=== PATIENT | male | born 1945 | race Caucasian/White ===

== ENCOUNTER 2016-12-29 23:21 | Observation (INO) | payer MEDICARE ==
[2016-12-30] MEDS ORDERED: NS 0.9% 1000 ML* 1,000 ML IV ONE (00:33)
[2016-12-30 01:11] LABS: Hematocrit 47 % (42-52); Hemoglobin 15.1 g/dl (14.0-18.0); Mean Corpuscular HGB Conc 32 g/dl (31-36); Mean Corpuscular Hemoglobin 28 pg (27-31); Mean Corpuscular Volume 89 fL (80-94); Mean Platelet Volume 7 um3 (7.4-10.4); Red Blood Count 5.31 10^6/ul (4.0-5.4); Red Cell Distribution Width 15 % (10.5-15); White Blood Count 13.3 10^3/ul (3.5-10.8)
[2016-12-30 01:26] LABS: ALT 10 U/L (7-52); Albumin 4.4 g/dL (3.2-5.2); Alkaline Phosphatase 71 U/L (34-104); BUN/Creatinine Ratio 16.1 (8-20); Blood Urea Nitrogen 19 mg/dL (6-24); CO2 Carbon Dioxide 23 mmol/L (22-32); Calcium 9.5 mg/dL (8.6-10.3); Chloride 107 mmol/L (101-111); Creatine Kinase 182 U/L (10-223); EGFR African American 78.3 (>60); EGFR Non-African American 60.9 (>60); Globulin 2.5 g/dL (2-4); Glucose 102 mg/dL (70-100); Magnesium 2.3 mg/dL (1.9-2.7); Sodium 135 mmol/L (133-145); Total Protein 6.9 g/dL (6.4-8.9)
[2016-12-30 01:27] LABS: Alcohol < 10 mg/dL (<10)
[2016-12-30 01:28] LABS: Troponin I 0.01 ng/mL (<0.04)
[2016-12-30] MEDS ORDERED: Iohexol 300* (CONTRAST) 10 ML SDV IV ONE (01:29)
[2016-12-30 01:41] LABS: TSH (Thyroid Stimulating Horm) 0.55 mcIU/mL (0.34-5.60)
[2016-12-30 02:06] LABS: AST 16 U/L (13-39); Anion Gap 5 mmol/L (2-11); Potassium 4.4 mmol/L (3.5-5.0)
[2016-12-30 02:43] LABS: Urine Bilirubin Negative (Negative); Urine Glucose Negative (Negative); Urine Nitrite Negative (Negative)
[2016-12-30 02:55] LABS: Benzodiazepine Urine Screen Presumptive Positive (None Detect)
--- NOTE | 2016-12-30 03:56 | ED ---
Syncope/Near Syncope - HPI Summary HPI Summary: Pt here w/ syncope last night. Reports he was in bed after receiving his night time meds (may have received them a little too close to doses earlier in the day as his home health rn intensive care unit needed to stay on HER schedule). Reports he woke at some point and when he got up, he was disoriented and lost - wandering around in his house where he lives alone - fell 3-4 times, each time smacking his head off of the marble floor. He arrives tonight upset/scared about this experience. He is shaking and his mouth is very dry - he's requesting water. Has injury to skin of face but also reports he's had shingles here and in eye for a couple of weeks - has been receiving antiviral and antibiotic medication for this condition through his PCP. Other than meds possibly making him drowsy, he has no idea why he was so disoriented tonight. - History Of Current Complaint Chief Complaint: EDLacSutureRecheck Time Seen by Provider: 12/30/16 00:04 Hx Obtained From: Patient - Allergies/Home Medications Allergies/Adverse Reactions: Allergies Allergy/AdvReac Type Severity Reaction Status Date / Time No Known Allergies Allergy Verified 12/29/16 23:36 PMH/Surg Hx/FS Hx/Imm Hx Previously Healthy: Yes Endocrine/Hematology History: Denies: Hx Anticoagulant Therapy, Hx Blood Disorders, Hx Diabetes, Hx Thyroid Disease, Hx Unexplained Bleeding, Hx Coagulopothy Cardiovascular History: Denies: Hx Hypertension Respiratory History: Reports: Hx Asthma - Exercise induced Denies: Hx Chronic Obstructive Pulmonary Disease (COPD) GI History: Denies: Hx Ulcer Psychiatric History: Reports: Hx Bipolar Disorder - Surgical History Surgery Procedure, Year, and Place: Left hip replacement - Immunization History Date of Tetanus Vaccine: unknown Infectious Disease History: No Infectious Disease History: Denies: Hx Clostridium Difficile, Hx Hepatitis, Hx Human Immunodeficiency Virus (HIV), Hx of Known/Suspected MRSA, Hx Shingles, Hx Known/Suspected VRE, Hx Known/Suspected VRSA, History Other Infectious Disease, Traveled Outside the [place] in Last 30 Days Comment Only: Hx Tuberculosis - PPD positive - Family History Known Family History: Negative: Cardiac Disease, Hypertension, Diabetes - Social History Lives: Alone Alcohol Use: None Hx Substance Use: No Substance Use Type: Reports: None Hx Tobacco Use: No Smoking Status (MU): Never Smoked Tobacco Review of Systems Positive: Drainage - Lt eye d/y shingles and therapy. Negative: Blurred Vision Cardiovascular: Negative Negative: Chest Pain Respiratory: Negative Negative: Shortness Of Breath Gastrointestinal: Negative Negative: Abdominal Pain, Vomiting, Diarrhea, Nausea Positive: no symptoms reported Musculoskeletal: Other - Rt hip pain from fall - is able to bear weight but painful to lie on this side Positive: Bruising - elbows, lac to face Positive: Headache - facial, Syncope - as in HPI. Negative: Weakness, Paresthesia, Numbness, Slurred Speech Positive: Anxious All Other Systems Reviewed And Are Negative: Yes Physical Exam Triage Information Reviewed: Yes Vital Signs On Initial Exam: Initial Vitals Temp Pulse Resp BP Pulse Ox 100.7 F 68 16 132/53 97 12/29/16 23:29 12/29/16 23:29 12/29/16 23:29 12/29/16 23:29 12/29/16 23:29 Vital Signs Reviewed: Yes Appearance: Positive: Pain Distress - pt initially presents w/ agitation, wandering from room to milieu; shaking/subtle tremulousness; dry mouth; upset about inital care upon arrival but does not give specifics, Thin Skin: Positive: Warm - Lt forehead w/ abrasion, scabbing appears to have been ripped away over erythematous base (area of shingles per pt); Lt palpebrae is w / erythema and edema here - dried blood on other areas of face as well; contustions over B/L elbows (no laxity and NTTP - FROM - does not appear to have fx's/dislocation); Rt lateral distal tibia w/ abrasion and dried blood. Head/Face: Negative: Other - as above Eyes: Positive: EOMI, MAKAYLA, Conjunctiva Inflammed - Lt eye (mild), Discharge - scant ENT: Positive: Hearing grossly normal, TMs normal - no hemotympanum. Negative: Nasal congestion, Nasal drainage, Trismus, Muffled voice Neck: Positive: Supple, Nontender Respiratory/Lung Sounds: Positive: Clear to Auscultation, Breath Sounds Present. Negative: Rales, Rhonchi, Subcutaneous Emphysema, Stridor, Tracheal Deviation, Wheezes, Unable to speak in full sentences, Fatigue Cardiovascular: Positive: Normal, RRR, S1, S2 Abdomen Description: Positive: Nontender, No Organomegaly, Soft Bowel Sounds: Positive: Present Musculoskeletal: Positive: Strength/ROM Intact, Pain @ - Rt hip w/ TTP; no external rotation - moving well while lying in bed - although asked to stay in bed, he is up and ambulating at times - does not appear to have difficulty bearing weight ambulating Neurological: Positive: Normal, Sensory/Motor Intact, Alert, Oriented to Person Place, Time, CN Intact II-III Psychiatric: Positive: Anxious - bur consolable - calm down and perks up/more clear after drinking water and gingerale - [place] Coma Scale Coma Scale Total: 14 Diagnostics - Vital Signs Vital Signs Temp Pulse Resp BP Pulse Ox 12/30/16 01:03 100 12/30/16 00:01 64 17 120/54 96 12/30/16 00:00 64 13 95 12/29/16 23:57 64 16 116/52 95 12/29/16 23:29 100.7 F 68 16 132/53 97 - Laboratory Lab Results: Lab Results 12/30/16 12/30/16 12/30/16 Range/Units 01:00 01:00 01:00 WBC 13.3 H (3.5-10.8) 10^3/ul RBC 5.31 (4.0-5.4) 10^6/ul Hgb 15.1 (14.0-18.0) g/dl Hct 47 (42-52) % MCV 89 (80-94) fL MCH 28 (27-31) pg MCHC 32 (31-36) g/dl RDW 15 (10.5-15) % Plt Count 235 (150-450) 10^3/ul MPV 7 L (7.4-10.4) um3 Neut % (Auto) 79.7 (38-83) % Lymph % (Auto) 12.3 L (25-47) % [place] % (Auto) 5.8 (1-9) % Eos % (Auto) 1.5 (0-6) % Baso % (Auto) 0.7 (0-2) % Absolute Neuts (auto) 10.6 H (1.5-7.7) 10^3/ul Absolute Lymphs (auto) 1.6 (1.0-4.8) 10^3/ul Absolute Monos (auto) 0.8 (0-0.8) 10^3/ul Absolute Eos (auto) 0.2 (0-0.6) 10^3/ul Absolute Basos (auto) 0.1 (0-0.2) 10^3/ul Absolute Nucleated RBC 0.03 10^3/ul Nucleated RBC % 0.2 Sodium 135 (133-145) mmol/L Potassium 4.4 (3.5-5.0) mmol/L Chloride 107 (101-111) mmol/L Carbon Dioxide 23 (22-32) mmol/L Anion Gap 5 (2-11) mmol/L BUN 19 (6-24) mg/dL Creatinine 1.18 H (0.67-1.17) mg/dL Est GFR ( Amer) 78.3 (>60) Est GFR (Non-Af Amer) 60.9 (>60) BUN/Creatinine Ratio 16.1 (8-20) Glucose 102 H (70-100) mg/dL Lactic Acid 0.9 (0.5-2.0) mmol/L Calcium 9.5 (8.6-10.3) mg/dL Magnesium 2.3 (1.9-2.7) mg/dL Total Bilirubin 0.70 (0.2-1.0) mg/dL AST 16 (13-39) U/L ALT 10 (7-52) U/L Alkaline Phosphatase 71 (34-104) U/L Total Creatine Kinase 182 (10-223) U/L Troponin I 0.01 (<0.04) ng/mL Total Protein 6.9 (6.4-8.9) g/dL Albumin 4.4 (3.2-5.2) g/dL Globulin 2.5 (2-4) g/dL Albumin/Globulin Ratio 1.8 (1-3) TSH 0.55 (0.34-5.60) mcIU/mL Urine Color Urine Appearance Urine pH (5-9) Ur Specific [place] (1.010-1.030) Urine Protein (Negative) Urine Ketones (Negative) Urine Blood (Negative) Urine Nitrate (Negative) Urine Bilirubin (Negative) Urine Urobilinogen (Negative) Ur Leukocyte Esterase (Negative) Urine Glucose (Negative) Urine Opiates Screen (None Detect) Ur Barbiturates Screen (None Detect) Ur Phencyclidine Scrn (None Detect) Ur Amphetamines Screen (None Detect) U Benzodiazepines Scrn (None Detect) Urine Cocaine Screen (None Detect) U Cannabinoids Screen (None Detect) Serum Alcohol < 10 (<10) mg/dL 12/30/16 12/30/16 Range/Units 02:30 02:30 WBC (3.5-10.8) 10^3/ul RBC (4.0-5.4) 10^6/ul Hgb (14.0-18.0) g/dl Hct (42-52) % MCV (80-94) fL MCH (27-31) pg MCHC (31-36) g/dl RDW (10.5-15) % Plt Count (150-450) 10^3/ul MPV (7.4-10.4) um3 Neut % (Auto) (38-83) % Lymph % (Auto) (25-47) % [place] % (Auto) (1-9) % Eos % (Auto) (0-6) % Baso % (Auto) (0-2) % Absolute Neuts (auto) (1.5-7.7) 10^3/ul Absolute Lymphs (auto) (1.0-4.8) 10^3/ul Absolute Monos (auto) (0-0.8) 10^3/ul Absolute Eos (auto) (0-0.6) 10^3/ul Absolute Basos (auto) (0-0.2) 10^3/ul Absolute Nucleated RBC 10^3/ul Nucleated RBC % Sodium (133-145) mmol/L Potassium (3.5-5.0) mmol/L Chloride (101-111) mmol/L Carbon Dioxide (22-32) mmol/L Anion Gap (2-11) mmol/L BUN (6-24) mg/dL Creatinine (0.67-1.17) mg/dL Est GFR ( Amer) (>60) Est GFR (Non-Af Amer) (>60) BUN/Creatinine Ratio (8-20) Glucose (70-100) mg/dL Lactic Acid (0.5-2.0) mmol/L Calcium (8.6-10.3) mg/dL Magnesium (1.9-2.7) mg/dL Total Bilirubin (0.2-1.0) mg/dL AST (13-39) U/L ALT (7-52) U/L Alkaline Phosphatase (34-104) U/L Total Creatine Kinase (10-223) U/L Troponin I (<0.04) ng/mL Total Protein (6.4-8.9) g/dL Albumin (3.2-5.2) g/dL Globulin (2-4) g/dL Albumin/Globulin Ratio (1-3) TSH (0.34-5.60) mcIU/mL Urine Color Yellow Urine Appearance Clear Urine pH 5.0 (5-9) Ur Specific [place] 1.044 H (1.010-1.030) Urine Protein Negative (Negative) Urine Ketones Negative (Negative) Urine Blood Negative (Negative) Urine Nitrate Negative (Negative) Urine Bilirubin Negative (Negative) Urine Urobilinogen Negative (Negative) Ur Leukocyte Esterase Negative (Negative) Urine Glucose Negative (Negative) Urine Opiates Screen None detected (None Detect) Ur Barbiturates Screen None detected (None Detect) Ur Phencyclidine Scrn None detected (None Detect) Ur Amphetamines Screen None detected (None Detect) U Benzodiazepines Scrn Presumptive positive H (None Detect) Urine Cocaine Screen None detected (None Detect) U Cannabinoids Screen None detected (None Detect) Serum Alcohol (<10) mg/dL Result Diagrams: 12/30/16 01:00 12/30/16 01:00 Diagnostic Studies Comment: Pt's CT reports reviewed: *brain with. * maxillofacial, chest, ab, pelvis w/o acute findings. NOTE: chest w/ small noncalcified nodules in Rt middle lobe (< 5cm) - f/u recommended. *cervical w/ anterolisthesis of C6 on C7, increased slightly from 2007 - pt denies clincal sx to correlate with danger s/sx of nerve pathology as a result. *brain small infarcts right caudate head and right basal ganglia/internal capsule of indeterminate age - correlate with sx - pt's sx are concerning for CVA and he denies previous h/o CVA. Lab Statement: Any lab studies that have been ordered have been reviewed, and results considered in the medical decision making process. Course/Dx Course Of Treatment: Pt presents w/ waking tonight w/ disorientation and falling /syncopizing w/ head injury 3-4 times. Reports he struck his head against marble each time. Was initially agitated and confused upon arrival. Cognition and attitude improved as he was here, rehydrated, etc. Suspect CT brain findings of ischemia could be acute and have triggered sx. He also reports concussion sx. Facial abrasion cannot be repaired but was cleaned and dressed. Reviewed with Dr. Short and Dr. Peres - pt agrees to admission for further observation and w/u. Stable at time of transition. - Diagnoses Provider Diagnoses: Syncope, Head injury, Concussion, Facial abrasion, Contusion, elbow, Basal ganglia infarction Discharge - Discharge Plan Condition: Improved Disposition: ADMITTED TO [facility]
[2016-12-30] MEDS ORDERED: Acetaminophen TAB* 325 MG PO PRN (04:58)
[2016-12-30] MEDS: traMADol TAB* 50 MG PO PRN ×2 (06:10→12:59)
[2016-12-30] MEDS: NS 0.9% 1000 ML* 1,000 ML IV SCH ×2 (06:10→17:19)
[2016-12-30] MEDS: Omeprazole CAP* 20 MG PO SCH (06:18)
--- NOTE | 2016-12-30 07:53 | HP ---
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 He has someone coming to his home assisting him, but thinks he may have taken his meds too early as he awoke after dark in his home unaware of exactly where in the home he was. In the process of stumbling in the dark he fell 3 times over objects before figuring out where in his home he was. He then came to the ED quite anxious over the events. He recalls falling and does not believe he passed out. He denies focal W /N/T, change in speech/swallow, chest pain, palpitations, light-headedness, or other issues. 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 Halcion 0.125 mg PO BEDTIME 04/26/14 Klonopin 0.5 mg PO BEDTIME 04/26/[address] [place] Carbonate 600 mg PO BEDTIME 04/26/14 Quetiapine Fumarate [Seroquel] 100 mg PO BEDTIME 04/26/14 Temazepam CAP* [Restoril CAP*] 15 mg PO BEDTIME 04/26/14 buPROPion TAB* [Wellbutrin TAB*] 450 mg PO DAILY 04/26/14 Levothyroxine TAB* [Synthroid 75 MCG TAB*] 1 tab 10/04/15 OXcarbazepine TAB(*) [Trileptal TAB(*)] 600 mg BEDTIME 10/04/15 Triamcinolone 0.5% OINT * 1 applic TOPICAL TID #1 tube MDD 3 a day 10/04/15 Allergies No Known Allergies Allergy (Verified 12/29/16 23:36) PSurgHx R cataract extraction appendectomy L KIMBERLY SocHx: denies tobacco, alcohol, and recreational drugs; lives alone, single, no children; 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; 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 FamHx: postitive for cancer & HTN ROS: as above, otherwise reviewed and all were negative vitals: Vital Signs Temp 37.3 C 12/30/16 06:01 Pulse 59 12/30/16 06:01 Resp 18 12/30/16 06:10 BP 138/55 12/30/16 06:01 Pulse Ox 97 12/30/16 06:01 Intake & Output 12/29/16 12/29/16 12/30/16 11:59 23:59 11:59 Weight 72.575 kg 72.575 kg Constitutional: NAD, normally developed, well-nourished white male HEENM: atraumatic; sclera/conjunctiva: injected/clear; blephara: swollen L; hearing: clinically intact; oropharynx: clear, mucosa tacky Neck: soft tissue: sore musculature, no bony pain; thyroid: normal Pulmonary: clear to auscultation bilaterally, good aeration, no accessory muscle use CV: RR/RR, normal S1S2, no carotid bruit, no jugular venous distention, 2+ B DP/ PT, no edema Abdominal: soft, non-distended, non-tender, no rebound/guarding/rigidity, normoactive bowel sounds, no hepatosplenomegaly or masses, no costovertebral angle tenderness Musculoskeletal: general: grossly intact; gait: stable Integumental: L ophthalmic trigeminal branch w/ scabbing herpetic eruption and superimposed abrasion Neurological cranial nerves II: visual chisholm tested & intact III/IV/: symmetric light reflex, EOMI/PERRLA V: intact facial sensation (hypersensitive in shingles distribution) VII: intact facial symmetry VIII: hearing clinically intact IX/X: symmetric palatal motion, no dysarthria XII: midline tongue fasciculation, protrusion, voice articulation motor: R-handed; diffuse fine tremor present throughout LUE: 4+/5 proximally, 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, & 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 RUE: 4+/5 proximally, distally, & 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 LLE: 4+/5 proximally & distally RLE: 4+/5 proximally & distally coordination finger/nose: intact/symmetric heal/liu: intact/decreased ability on L 2nd total hip arthoplasty dysdiadochokinesia: none sensory crude touch: diminished symetrically B feet; otherwise intact pinprick: decreased L lateral ankle; otherwise intact vibration: decreased perception B feet; otherwise intact DTRs biceps: 1+ B triceps: 1+ B brachioradialis: 1+ B patellar: 2+ B Achilles: trace B Psychiatric orientation: AA&O to PPS affect: calm mood: cooperative, pleasant eye contact: good content: reliable responses: timely insight: good Testing: Lab Results 12/30/16 12/30/16 12/30/16 Range/Units 01:00 01:00 01:00 WBC 13.3 H (3.5-10.8) 10^3/ul RBC 5.31 (4.0-5.4) 10^6/ul Hgb 15.1 (14.0-18.0) g/dl Hct 47 (42-52) % MCV 89 (80-94) fL MCH 28 (27-31) pg MCHC 32 (31-36) g/dl RDW 15 (10.5-15) % Plt Count 235 (150-450) 10^3/ul MPV 7 L (7.4-10.4) um3 Neut % (Auto) 79.7 (38-83) % Lymph % (Auto) 12.3 L (25-47) % [place] % (Auto) 5.8 (1-9) % Eos % (Auto) 1.5 (0-6) % Baso % (Auto) 0.7 (0-2) % Absolute Neuts (auto) 10.6 H (1.5-7.7) 10^3/ul Absolute Lymphs (auto) 1.6 (1.0-4.8) 10^3/ul Absolute Monos (auto) 0.8 (0-0.8) 10^3/ul Absolute Eos (auto) 0.2 (0-0.6) 10^3/ul Absolute Basos (auto) 0.1 (0-0.2) 10^3/ul Absolute Nucleated RBC 0.03 10^3/ul Nucleated RBC % 0.2 Sodium 135 (133-145) mmol/L Potassium 4.4 (3.5-5.0) mmol/L Chloride 107 (101-111) mmol/L Carbon Dioxide 23 (22-32) mmol/L Anion Gap 5 (2-11) mmol/L BUN 19 (6-24) mg/dL Creatinine 1.18 H (0.67-1.17) mg/dL Est GFR ( Amer) 78.3 (>60) Est GFR (Non-Af Amer) 60.9 (>60) BUN/Creatinine Ratio 16.1 (8-20) Glucose 102 H (70-100) mg/dL Lactic Acid 0.9 (0.5-2.0) mmol/L Calcium 9.5 (8.6-10.3) mg/dL Magnesium 2.3 (1.9-2.7) mg/dL Total Bilirubin 0.70 (0.2-1.0) mg/dL AST 16 (13-39) U/L ALT 10 (7-52) U/L Alkaline Phosphatase 71 (34-104) U/L Total Creatine Kinase 182 (10-223) U/L Troponin I 0.01 (<0.04) ng/mL Total Protein 6.9 (6.4-8.9) g/dL Albumin 4.4 (3.2-5.2) g/dL Globulin 2.5 (2-4) g/dL Albumin/Globulin Ratio 1.8 (1-3) TSH 0.55 (0.34-5.60) mcIU/mL Urine Color Urine Appearance Urine pH (5-9) Ur Specific [place] (1.010-1.030) Urine Protein (Negative) Urine Ketones (Negative) Urine Blood (Negative) Urine Nitrate (Negative) Urine Bilirubin (Negative) Urine Urobilinogen (Negative) Ur Leukocyte Esterase (Negative) Urine Glucose (Negative) Urine Opiates Screen (None Detect) Ur Barbiturates Screen (None Detect) Ur Phencyclidine Scrn (None Detect) Ur Amphetamines Screen (None Detect) U Benzodiazepines Scrn (None Detect) Urine Cocaine Screen (None Detect) U Cannabinoids Screen (None Detect) Serum Alcohol < 10 (<10) mg/dL 12/30/16 12/30/16 Range/Units 02:30 02:30 WBC (3.5-10.8) 10^3/ul RBC (4.0-5.4) 10^6/ul Hgb (14.0-18.0) g/dl Hct (42-52) % MCV (80-94) fL MCH (27-31) pg MCHC (31-36) g/dl RDW (10.5-15) % Plt Count (150-450) 10^3/ul MPV (7.4-10.4) um3 Neut % (Auto) (38-83) % Lymph % (Auto) (25-47) % [place] % (Auto) (1-9) % Eos % (Auto) (0-6) % Baso % (Auto) (0-2) % Absolute Neuts (auto) (1.5-7.7) 10^3/ul Absolute Lymphs (auto) (1.0-4.8) 10^3/ul Absolute Monos (auto) (0-0.8) 10^3/ul Absolute Eos (auto) (0-0.6) 10^3/ul Absolute Basos (auto) (0-0.2) 10^3/ul Absolute Nucleated RBC 10^3/ul Nucleated RBC % Sodium (133-145) mmol/L Potassium (3.5-5.0) mmol/L Chloride (101-111) mmol/L Carbon Dioxide (22-32) mmol/L Anion Gap (2-11) mmol/L BUN (6-24) mg/dL Creatinine (0.67-1.17) mg/dL Est GFR ( Amer) (>60) Est GFR (Non-Af Amer) (>60) BUN/Creatinine Ratio (8-20) Glucose (70-100) mg/dL Lactic Acid (0.5-2.0) mmol/L Calcium (8.6-10.3) mg/dL Magnesium (1.9-2.7) mg/dL Total Bilirubin (0.2-1.0) mg/dL AST (13-39) U/L ALT (7-52) U/L Alkaline Phosphatase (34-104) U/L Total Creatine Kinase (10-223) U/L Troponin I (<0.04) ng/mL Total Protein (6.4-8.9) g/dL Albumin (3.2-5.2) g/dL Globulin (2-4) g/dL Albumin/Globulin Ratio (1-3) TSH (0.34-5.60) mcIU/mL Urine Color Yellow Urine Appearance Clear Urine pH 5.0 (5-9) Ur Specific [place] 1.044 H (1.010-1.030) Urine Protein Negative (Negative) Urine Ketones Negative (Negative) Urine Blood Negative (Negative) Urine Nitrate Negative (Negative) Urine Bilirubin Negative (Negative) Urine Urobilinogen Negative (Negative) Ur Leukocyte Esterase Negative (Negative) Urine Glucose Negative (Negative) Urine Opiates Screen None detected (None Detect) Ur Barbiturates Screen None detected (None Detect) Ur Phencyclidine Scrn None detected (None Detect) Ur Amphetamines Screen None detected (None Detect) U Benzodiazepines Scrn Presumptive positive H (None Detect) Urine Cocaine Screen None detected (None Detect) U Cannabinoids Screen None detected (None Detect) Serum Alcohol (<10) mg/dL ECG, personally reviewed: sinus 1st degree AV block rate 61, no ischemia CT brain WO, personally reviewed: FINDINGS: Involutional changes. No hemorrhage. No mass. Small infarcts right caudate head and right basal ganglia/ internal capsule of indeterminate age. Correlate with symptoms. Osseous structures are intact. CT maxillofacial WO: FINDINGS: Negative for orbital or facial fracture. The globes and orbits are intact. CT C-spine WO: FINDINGS: Negative for acute cervical fracture of C1-6. C7 is incompletely included on the scan. If there is any suspicion of a C7 fracture, scan should be repeated to include this area. Again note is made of anterolisthesis of C6 on C7. Compared to 2008, the anterolisthesis has increased slightly. There is now near fusion of the C6-[address] chest/abd/pel W: FINDINGS: Chest: Negative for thoracic/pulmonary injury. No pneumothorax or pneumomediastinum. No pulmonary infiltrates/contusions. There is a trace right pleural effusion which measures transudate and not blood. Note made of small non-calcified nodules in the right middle lobe ( less than 5cm). Follow up recommended according to established criteria. Abdomen/pelvis: Negative for abdominal pelvic visceral injury. Liver, gallbladder, spleen, pancreas, adrenal glands, kidneys, urinary tract, and urinary bladder are all intact. Note made of multiple renal cysts. No acute abnormality of bowel. No pneumoperitoneum or ascites. Enlarged prostate. 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
--- NOTE | 2016-12-30 08:04 | RAD ---
indication: Facial lacerations and confusion after fall. There is a laceration overlying the left forEhead. COMPARISON: CT of the cervical spine April 20, [address] scan of the brain, maxillofacial bones and c-spine was performed without intravenous contrast enhancement. Contiguous axial sections were obtained from the lung apices through the vertex of the skull. BRAIN: The ventricles, cisterns and sulci symmetrical involutional changes. There is mild periventricular and subcortical white matter hypoattenuation most consistent with chronic microvascular disease. At the anterior limb of the right internal capsule as well as the right caudate head nucleus there is a more focal hypoattenuating area that could represent an age indeterminant lacunar infarction. Otherwise the teague-white differentiation is adequately maintained. There is no evidence for intracranial hemorrhage. The calvarium is intact without radiographically apparent fracture. The mastoid air cells are appropriately aerated. FACIAL BONES: Bones: There is no displaced fracture or dislocation. The orbital rim is intact. The zygomatic arch is intact. The pterygoid plates are intact Orbits: The globes are round. The optic nerves are symmetric. The extraocular musculature is normal. There is no post septal or intraconal inflammatory change. There is no retrobulbar hematoma. Paranasal Sinuses: The paranasal sinuses are clear. C-SPINE: The cervical spine is only imaged up to the intervertebral disc of C7 and T1 with the anterior inferior margin of the C7 vertebral body cut off of the field of view. Degenerative changes of the cervical spine include loss of intervertebral disc height and marginal osteophyte formation. Most severe degenerative changes are seen at C5-C7. There is grade 1 anterolisthesis of C6 over C7 similar in appearance to the 2007 CT examination. The vertebral bodies and facet joints are otherwise appropriately aligned. On the coronal plane images there is uncovertebral hypertrophy most severely affecting the lower cervical spine. There is no prevertebral soft tissue swelling. There is no hyperdense material in the cervical canal to indicate hemorrhage. The visualized musculature and soft tissues are normal. There is no gross lymphadenopathy visualized. The visualized portion of the lung apices are clear. IMPRESSION: 1. No calvarial fracture or acute intracranial hemorrhage. CT findings are most consistent with chronic microvascular disease but there could be an age indeterminant lacunar infarction at the right internal capsule and caudate head nucleus. Please correlate to focal neurologic deficits. 2. No facial bone fractures. 3. Multilevel degenerative change of the cervical spine not substantially changed since the April 20, 2007 CT of the cervical spine.
--- NOTE | 2016-12-30 08:10 | RAD ---
INDICATION: Multiple falls, right hip and abdominal pain. COMPARISON: Comparison is made with a prior chest x-ray study from May 30, 2003. TECHNIQUE: A CT scan of the chest, abdomen and pelvis was performed with intravenous and without oral contrast following intravenous injection of 97 ml of Omnipaque 300 nonionic contrast. Contiguous axial sections were obtained from the lung apices through the symphysis pubis. Images were reconstructed in the coronal and sagittal planes. FINDINGS: There is mild dependent bilateral lower lobe subsegmental atelectasis. There are a couple 2-3 mm noncalcified nodules present in the right upper and right middle lobes seen on images #28 and 30 on the axial data set. There is a trace right pleural effusion. No significant enlarged mediastinal or hilar lymph nodes are seen. The heart is within normal limits in size. No pericardial effusion is present. The thoracic aorta is normal in caliber. The liver is normal in size without significant focal abnormality. No calcified gallstones are seen. The spleen is mildly enlarged. The pancreas appears to be within normal limits. The kidneys and adrenal glands are normal in size. There is no evidence for hydronephrosis. There are multiple bilateral renal cysts measuring up to 4.9 cm on the right side and 6.3 cm on the left side. The aorta is normal in caliber and there is moderate calcific plaque present. No significant enlarged retroperitoneal lymph nodes are seen. There is a small hiatal hernia. The stomach, small and large bowel appear nondistended. There is mild sigmoid diverticulosis. There is no evidence for diverticulitis or colitis. No free intraperitoneal air or fluid is seen. No fracture is seen. The patient is status post total left hip replacement surgery. There are few scattered sclerotic nonspecific foci present in the vertebra. There is anterior subluxation of L5 relative S1 of approximately 5 mm consistent with grade I anterior spondylolisthesis. There is bilateral spondylolysis at the L5 level which appears chronic. IMPRESSION: 1. TRACE RIGHT PLEURAL EFFUSION 2. SMALL NODULAR DENSITIES IN THE RIGHT UPPER AND MIDDLE LOBES. RECOMMEND A FOLLOW-UP CT OF THE CHEST IN 6 MONTHS TIME TO DEMONSTRATE STABILITY. 3. MILD SPLENOMEGALY. 4. GRADE I ANTERIOR SPONDYLOLISTHESIS AT THE L5-S1 LEVEL AND BILATERAL SPONDYLOLYSIS AT THE L5 LEVEL.
[2016-12-30] MEDS: oxyCODONE TAB* 5 MG TAB PO PRN ×3 (08:59→22:35)
[2016-12-30] MEDS: Docusate CAP* 100 MG PO SCH ×2 (08:59→22:29)
[2016-12-30 10:14] LABS: Hematocrit 41 % (42-52); Hemoglobin 13.5 g/dl (14.0-18.0); Mean Corpuscular HGB Conc 33 g/dl (31-36); Mean Corpuscular Hemoglobin 29 pg (27-31); Mean Corpuscular Volume 88 fL (80-94); Mean Platelet Volume 7 um3 (7.4-10.4); Red Blood Count 4.62 10^6/ul (4.0-5.4); Red Cell Distribution Width 14 % (10.5-15); White Blood Count 10.3 10^3/ul (3.5-10.8)
--- NOTE | 2016-12-30 10:25 | ECHO ---
Patient: ROD MONTIEL [facility] Rec#: [id number] : 1945 Date: 12/30/2016 Age: 71y Height: 175.26 cm / 69.0 in Weight: 72.57 kg / 159.9 lbs Sex: M BSA: 1.88 Room#: 452 Admit Date#: 12/30/2016 Type: Inpatient Referring: Don Crain MD Reading: Ventura Augustine MD Medical Records Auditor: Luz Germain,DENISECS,RDMS CC: Moncho Delaney MD Transthoracic Echocardiogram Indication: TIA/CVA, Syncope BP: 138/55 HR: 64 Rhythm: NSR Findings History: Asthma, shingles Technical Comments: The study quality is fair. Left Ventricle: The left ventricular chamber size is normal. Mild concentric left ventricular hypertrophy is observed. There is diffuse global hypokinesis of the left ventricle. Left ventricular systolic function is at the lower limits of normal. The estimated ejection fraction is 50-55%. Abnormal left ventricular diastolic function is observed. Left Atrium: The left atrium is mild to moderately dilated. Right Ventricle: The right ventricular chamber size and systolic function are within normal limits. Right Atrium: The right atrial cavity size is normal. Aortic Valve: The aortic valve is trileaflet. The aortic valve leaflets are mildly thickened. There is moderate to severe aortic regurgitation. Eccentric jet pushing onto the anterior leaflet of the mitral valve There is no evidence of aortic stenosis. Mitral Valve: The mitral valve leaflets appear normal. Mitral valve leaflet mobility is mildly restricted. The anterior MV leaflet mobility is restricted by AOV regurgitation. There is no evidence of mitral regurgitation. There is no evidence of mitral stenosis. Tricuspid Valve: The tricuspid valve leaflets are normal. There is trace tricuspid regurgitation. Unable to estimate the right ventricular systolic pressure. Pulmonic Valve: There is no evidence of pulmonic valve thickening. There is a trace pulmonic regurgitation. Pericardium: There is no significant pericardial effusion. Aorta: There is mild dilatation of the ascending aorta. There is no dilatation of the aortic arch. There is mild dilatation of the aortic root. Pulmonary Artery: The main pulmonary artery is not well visualized. Venous: The inferior vena cava appears normal in size. There is a greater than 50% respiratory change in the inferior vena cava dimension. Summary: There was not any prior study for comparison. Conclusions There is diffuse global hypokinesis of the left ventricle. Left ventricular systolic function is at the lower limits of normal. The estimated ejection fraction is 50-55%. The right ventricular chamber size and systolic function are within normal limits. The aortic valve leaflets are mildly thickened. There is moderate to severe aortic regurgitation. Eccentric jet pushing onto the anterior leaflet of the mitral valve Mitral valve leaflet mobility is mildly restricted. The anterior MV leaflet mobility is restricted by AOV regurgitation. There is no evidence of mitral regurgitation. There is trace tricuspid regurgitation. Unable to estimate the right ventricular systolic pressure. There is no significant pericardial effusion. Transesophogeal echo may be of benefit to evaluate aortic valvel There was not any prior study for comparison. Measurements Name Value Normal Range RVIDd (AP) 2D 3 cm (0.9 - 2.6) RVDdMajor (2D) 3.2 cm (2.2 - 4.4) RAd ISD 4CH 3.9 cm (3.4 - 4.9) RA (A4C)W 3.3 cm (2.9 - 4.6) IVSd (2D) 1.2 cm (0.6 - 1) LVPWd (2D) 1.2 cm (0.6 - 1) LVIDd (2D) 4.8 cm (3.6 - 5.4) LVIDs (2D) 3.6 cm - LV FS (2D) 24 % (25 - 45) Aortic Annulus 2.1 cm (1.4 - 2.6) Ao root diameter (2D) 3.6 cm (2.1 - 3.5) Ascending Ao 3.7 cm (2.1 - 3.4) Aortic arch 3.3 cm (1.8 - 3.4) LA dimension (AP) 2D 4.4 cm (2.3 - 3.8) LAd ISD 4CH 4.9 cm (2.9 - 5.3) LA ISD 4CH W 4.9 cm (2.5 - 4.5) Name Value Normal Range LA ESV SP 4CH (A/L) 75.36 ml - LA ESV SP 2CH (A/L) 72.5 ml - LA ESV BP (A/L) 78.06 ml - LA ESV BP (A/L) index 41.5 ml/m2 - LA ESV SP 4CH (MOD) 69.78 ml - LA ESV SP 2CH (MOD) 65.28 ml - Name Value Normal Range MV E-wave Vmax 0.6 m/sec - MV deceleration time 364 msec - MV A-wave Vmax 0.6 m/sec - MV E:A ratio 1 ratio - LV septal e' Vmax 0.04 m/sec - LV lateral e' Vmax 0.05 m/sec - LV E:e' septal ratio 15 ratio - LV E:e' lateral ratio 12 ratio - Name Value Normal Range AV Vmax 2.1 m/sec - AV VTI 39 cm - AV peak gradient 17 mmHg - AV mean gradient 8 mmHg - LVOT diameter 2.2 cm - LVOT Vmax 1 m/sec - LVOT VTI 21 cm - LVOT peak gradient 4 mmHg - LVOT mean gradient 2.1 mmHg - MIKE (continuity Vmax) 1.8 cm2 - AR PHT 527.02 msec - AR peak gradient 60.24 mmHg - JOESPH Vmax 1.1 m/sec - Name Value Normal Range RAP 8 mmHg - IVC diameter 1.8 cm - Name Value Normal Range PV Vmax 0.6 m/sec - PV peak gradient 1.4 mmHg -
--- NOTE | 2016-12-30 11:57 | RAD ---
HISTORY: Stroke COMPARISONS: None TECHNIQUE: The following sequences were obtained of the head: Sagittal T1-weighted images, axial T2-weighted images, axial FLAIR images, axial susceptibility weighted images, axial T1-weighted images. Additionally, axial diffusion-weighted images were obtained with calculated apparent diffusion coefficients. FINDINGS: Evaluation is somewhat limited by magnetic susceptibility artifact which limits evaluation of the inferior frontal lobes on the diffusion-weighted imaging. HEMORRHAGE/INFARCT: There is no hemorrhage or acute infarct. MASSES/SHIFT: There is no mass or shift. EXTRA-AXIAL SPACES/MENINGES: There are no extra-axial fluid collections. SULCI AND VENTRICLES: The sulci and ventricles are normal in size and position for the patient's stated age. CEREBRUM: There are no focal parenchymal abnormalities. BRAINSTEM: There are no focal parenchymal abnormalities. CEREBELLUM: There are no focal parenchymal abnormalities. The cerebellar tonsils are normal in size and position. SELLA: The sella is normal. PINEAL: The pineal region is clear. CP ANGLE/TEMPORAL BONES: The labyrinthine structures are grossly normal. VESSELS: Normal flow-voids are noted within the visualized vertebral vasculature. DIFFUSION ABNORMALITIES: There are no diffusion abnormalities. PARANASAL SINUSES/MASTOIDS: The paranasal sinuses are clear. ORBITS: The orbits are unremarkable. BONES AND SOFT TISSUE: No bone or soft tissue abnormalities are noted. OTHER: None IMPRESSION: UNREMARKABLE MRI OF THE BRAIN. WITHIN THE LIMITATIONS OF THE STUDY, THERE IS NO RESTRICTED DIFFUSION TO SUGGEST ACUTE INFARCT
[2016-12-30] MEDS: PTO:Timolol 0.5% OPTH.SOL* BTL LEFT EYE SCH ×2 (12:58→22:40)
[2016-12-30] MEDS: PTO:Dorzolamide 2% OPTH (NF) 10 ML BTL LEFT EYE SCH ×2 (12:58→22:40)
[2016-12-30] MEDS: PTO:prednisoLONE 1% OPHTH.SUSP* 5 ML OPHTH.SUSP LEFT EYE SCH ×2 (16:06→22:38)
[2016-12-30] MEDS ORDERED: OXcarbazepine TAB(*) 300 MG PO SCH (21:00)
[2016-12-30] MEDS ORDERED: clonazePAM TAB(*) 0.5 MG PO PRN (21:00)
[2016-12-30] MEDS ORDERED: Temazepam CAP* 15 MG PO PRN (21:00)
[2016-12-30] MEDS ORDERED: CMCS:Lithium Carbonate ER (NF) 300 MG TAB.ER PO SCH (21:00)
[2016-12-30] MEDS ORDERED: LORazepam TAB(*) 0.5 MG PO SCH (21:00)
--- NOTE | 2016-12-30 21:48 | CONS ---
NEUROLOGY CONSULTATION: DATE OF CONSULT: 12/30/16 REFERRING PROVIDER: Don Crain MD LOCATION: He is an inpatient in room 452. CHIEF COMPLAINT: Fall, varicella zoster. 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 He was at home and at about 1:30 in the morning, tried to get up and fell and hit his head hard. He was disoriented and did not know where he was. He crawled around and tried to find a place to sit up, but fell 3 more times. At one point, he injured his left hip. He has someone that comes to his home to help him with his eye drops for his zoster, thinks that is how he was found. He was brought into the emergency room and had a CT of the brain and interpreted as showing subcortical hypodensities as well as a possible area of focal infarction near the right caudate and right anterior limb of the internal capsule. I reviewed the images and I do not see any clear abnormalities. I was asked to see him in consultation. There is no prior history of stroke. He is on some chronic medications for bipolar disorder including temazepam, Klonopin, and Halcion at bedtime. The current doses he is on are less than they had been in the past. He has a history of hypothyroidism. MEDICATIONS: On admission: 1. Halcion 0.125 mg p.o. q.h.s. 2. Klonopin 0.5 mg p.o. q.h.s. 3. [place] carbonate 600 mg p.o. q.h.s. 4. Seroquel 100 mg p.o. q.h.s. 5. Temazepam 15 mg p.o. q.h.s. 6. Bupropion 450 mg p.o. daily. 7. Levothyroxine 75 mcg p.o. daily. 8. Oxcarbazepine 600 mg p.o. q.h.s. 9. Triamcinolone ophthalmic ointment t.i.d. ALLERGIES: He does not have any drug allergies. PHYSICAL EXAM: Limited physical examination. His temperature was 100.7 temporally last evening, down to 98.8 orally this morning. Blood pressure 126/ 48, heart rate in the 50s. Neurologically, he has some open lesions in the left forehead and erythema of the left eyelid. Both pupils are quite small at about 2.5 mm and barely react to light to 2 mm. He has poor vision. Speech is clear and he is a good historian with intact memory and fluent language. He has a coarse sustention tremor in both hands. 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 There is a question of prior or subacute cerebral infarctions on his CAT scan but an MRI scan today, which I reviewed looks completely normal. Therefore, there is no evidence of cerebrovascular disease. I advised him accordingly. I see no reason for further evaluation or treatment of potential cerebrovascular disease. [id number]/[facility] #: [id number] MTDD
[2016-12-30] MEDS: Pregabalin CAP(*) 25 MG PO SCH (22:29)
[2016-12-30] MEDS: ValACYclovir (*) 1 GM TAB PO SCH (22:35)
[2016-12-31] MEDS: Omeprazole CAP* 20 MG PO SCH (05:40)
[2016-12-31] MEDS ORDERED: Thyroid TAB* 30 MG PO SCH (06:00)
[2016-12-31 07:38] VITALS: BP 140/46
[2016-12-31] MEDS ORDERED: Propranolol TAB* 20 MG PO SCH (09:00)
[2016-12-31] MEDS ORDERED: BuPROPion XL* 150 MG TAB.XL PO SCH (09:00)
[2016-12-31] MEDS: Pregabalin CAP(*) 25 MG PO SCH (09:18)
[2016-12-31] MEDS: Docusate CAP* 100 MG PO SCH (09:18)
[2016-12-31] MEDS: ValACYclovir (*) 1 GM TAB PO SCH (09:19)
[2016-12-31] MEDS: PTO:prednisoLONE 1% OPHTH.SUSP* 5 ML OPHTH.SUSP LEFT EYE SCH (09:22)
[2016-12-31] MEDS: PTO:Dorzolamide 2% OPTH (NF) 10 ML BTL LEFT EYE SCH (09:22)
[2016-12-31] MEDS: PTO:Timolol 0.5% OPTH.SOL* BTL LEFT EYE SCH (09:22)
--- NOTE | 2017-01-01 08:59 | DS ---
CC: Dr. Delaney * DISCHARGE SUMMARY: DATE OF ADMISSION: 12/30/16 DATE OF DISCHARGE: 12/31/16 PRIMARY CARE PROVIDER: Dr. Delaney. PRIMARY DIAGNOSIS: Fall with concussion. SECONDARY DIAGNOSES: Include: 1. Herpes zoster. 2. Chronic insomnia. 3. Bipolar disorder. MEDICATIONS ON DISCHARGE: Unchanged from admission include: 1. Thyroid 30 mg daily. 2. [place] 0.01% ophthalmic drops, left eye in the evening. 3. Timolol 0.5% left eye twice daily. 4. Trusopt 1 drop left eye twice daily. 5. Prednisolone 1% 1 drop 3 times a day, left eye. 6. Valtrex 1 g twice daily. 7. Temazepam 15 mg at bedtime as needed for insomnia. 8. Propranolol 20 mg daily. 9. Lorazepam 0.75 mg at bedtime. 10. Clonazepam 1.5 mg at bedtime as needed. 11. Oxcarbazepine 600 mg at bedtime. 12. [place] 600 mg at bedtime. 13. Lyrica 75 mg twice daily. 14. Bupropion 150 mg daily. PERTINENT IMAGING PERFORMED DURING HOSPITAL STAY: MRI brain, impression: Unremarkable MRI of the brain. There is no restricted diffusion to suggest acute infarct. Transthoracic echocardiogram, diffuse global hypokinesis of the left ventricle with estimated LVEF 50-55%, right ventricular chamber size and systolic function within normal limits. Aortic valve leaflets are mildly thickened. There is some moderate- to-severe aortic regurgitation. Eccentric jet pushing on to the anterior leaflet of the mitral valve. Mitral valve leaflet mobility is restricted by aortic valve regurgitation. There is no evidence of mitral regurgitation. There is trace tricuspid regurgitation. I am unable to estimate the right ventricular systolic pressure. HISTORY OF PRESENT ILLNESS AND HOSPITAL COURSE: This is a 71-year-old man with past medical history as outlined in the history of present illness on the day of admission including current treatment for varicella zoster of the first division of the left trigeminal nerve with corneal involvement. He has been in his usual state of health, woke up overnight approximately 1:30 a.m., tried to get out of bed, and fell and hit his head. He felt disoriented and moved around the house and fell several more times while he "tried to find another safe place to rest." He was sent to the hospital for these reasons. There was concern for stroke, however, an MRI did not corroborate this. It was thought that the patient had a fall in the setting of waking up overnight, potentially vasovagal episode. However, more likely in the setting of polypharmacy with multiple sleep inducing agents including temazepam, Halcion, Klonopin and Seroquel. The patient notes that he has been titrating down these medications significantly over the last several years with his primary care physician. There were no complications during the patient's hospital stay, however, his resting heart rate was noted to be fairly slow in the 50s, sometimes dipping into the 40s, improved with waking the patient. Of note he does bike several times per week and time trials, long trails as well as swims several times per week. Of note, his transthoracic echocardiogram did note aortic valve regurgitation, which suspected to have contributed to this presentation at this time. At followup, please; 1. Please continue to titrate down medications for insomnia as able as they are likely contributing to the falls. 2. Please consider referral to Cardiology for transesophageal echocardiogram for further evaluation and monitoring of aortic valve regurgitation. 3. No specific labs or vitals that need followup. Reasons to return to the hospital included, but not limited to recurrent or worsening symptoms, headache, nausea, vomiting, lightheadedness, loss of consciousness, near loss of consciousness, or recurrent syncope in night, bleeding from any source, changes in vision were discussed with the patient, he acknowledged understanding. TIME SPENT: Greater than 60 minutes were spent discharging the patient; greater than half was spent [id number] with the patient. [id number]/[facility] #: [id number] PHAM
== END 2016-12-31 13:27 | disposition home or self-care (01) ==
LOC: ED 23:21 → MEDTELE 12-30 04:56
PROVIDERS: ADMIT Hospitalist; ATTEND Internal Medicine
DX: S09.90XA Unspecified injury of head, initial encounter (principal); S50.01XA Contusion of right elbow, initial encounter; S50.02XA Contusion of left elbow, initial encounter; S00.81XA Abrasion of other part of head, initial encounter; W01.198A Fall on same level from slipping, tripping and stumbling with subsequent striking against other object, initial encounter; Y92.009 Unspecified place in unspecified non-institutional (private) residence as the place of occurrence of the external cause; F31.9 Bipolar disorder, unspecified; B02.30 Zoster ocular disease, unspecified; E03.9 Hypothyroidism, unspecified; Z79.899 Other long term (current) drug therapy; R55 Syncope and collapse; J90 Pleural effusion, not elsewhere classified; R16.1 Splenomegaly, not elsewhere classified; R94.31 Abnormal electrocardiogram [ECG] [EKG]; I35.1 Nonrheumatic aortic (valve) insufficiency
CPT/HCPCS: 36415; 70450; 70486; 70551; 71260; 72125; 74177; 80053; 80307; 80320; 81003; 82550; 83605; 83735; 84443; 84484; 85025; 85027; 93005; 93306; 94760; 96360; 96361; 99284; A9270-GY; G0378; G0480; Q9967